=== PATIENT | female | born 1995 | race Hispanic/Latino ===

== ENCOUNTER 2019-04-27 21:20 | Emergency (ER) | payer OTHER ==
[2019-04-27] MEDS ORDERED: MAG HYDROX/AL HYDROX/SIMETH ES 30 ML SUSP UDCUP ONE (21:35)
[2019-04-27] MEDS ORDERED: ONDANSETRON ODT 4 MG TAB ONE (21:35)
[2019-04-27] MEDS ORDERED: LIDOCAINE HCL 2% VISCOUS 15 ML UDCUP ONE (21:35)
[2019-04-27 21:56] LABS: APPEARANCE,URINE Clear (CLEAR); BILIRUBIN,URINE Negative (NEGATIVE); COLOR,URINE Yellow (YELLOW); GLUCOSE, URINE (UA) Negative (NEGATIVE); KETONES,URINE Negative (NEGATIVE); LEUKOCYTE ESTERASE ,URINE Negative (NEGATIVE); NITRATE,URINE Negative (NEGATIVE); OCCULT BLOOD,URINE Negative (NEGATIVE); PH,URINE 7.5 (5.0-8.0); PROTEIN,URINE Negative (NEGATIVE)
[2019-04-27 21:57] LABS: HCG,QUAL RESULT NEGATIVE (NEGATIVE)
[2019-04-27] MEDS ORDERED: SUCRALFATE 1 GM TABLET ONE (22:59)
[2019-04-27] MEDS ORDERED: KETOROLAC TROMETHAMINE 30MG/ML ONE (23:49)
== END 2019-04-28 00:13 | disposition home or self-care (01) ==
LOC: EDH 21:20
DX: K29.70 Gastritis, unspecified, without bleeding (principal)
CPT/HCPCS: 81003; 81025; 96372; 99284; J1885